=== PATIENT | male | born 1970 | race Caucasian/White ===

== ENCOUNTER 2016-12-09 08:44 | Observation (INO) | payer OTHER ==
[2016-12-09 09:41] LABS: Basophils # (A) 0.1 k/uL (0-0.2); Basophils % (A) 1 %; CHCM 34.4; Eosinophils # (A) 0.1 k/uL (0-0.7); Eosinophils % (A) 1 %; HCT 49.2 % (39.0-53.0); HDW 2.22; HGB 16.1 gm/dL (13.0-17.5); Luc # (Auto) 0.14; Luc % (Auto) 1; Lymphocytes # (A) 1.5 k/uL (1.0-4.8); Lymphocytes % (A) 13 %; MCH 29.7 pg (25.0-35.0); MCHC 32.8 g/dL (31.0-37.0); MCV 90.6 fL (80.0-100.0); Monocytes # (A) 0.6 k/uL (0-1.0); Monocytes % (A) 5 %; Neutrophils # (A) 9.3 k/uL (1.3-7.7); Neutrophils % (A) 79 %; RBC 5.43 m/uL (4.30-5.90); RDW 13.9 % (11.5-15.5); WBC 11.7 k/uL (3.8-10.6); WBC (Perox) 11.38
[2016-12-09 09:46] LABS: INR 1.1 (<1.2); Partial Thromboplastin Time 24.4 sec (22.0-30.0); Prothrombin Time 10.7 sec (9.0-12.0)
[2016-12-09 09:47] LABS: ALT 63 U/L (21-72); AST 28 U/L (17-59); Alkaline Phosphatase 79 U/L (38-126); Anion Gap 10 mmol/L; Blood Urea Nitrogen 16 mg/dL (9-20); Calcium 9.7 mg/dL (8.4-10.2); Carbon Dioxide 23 mmol/L (22-30); Chloride 109 mmol/L (98-107); Glucose 91 mg/dL (74-99); Magnesium 1.9 mg/dL (1.6-2.3); Non-African American GFR(MDRD) >60 (>60 ml/min/1.73 sqM); Potassium 4.4 mmol/L (3.5-5.1); Sodium 142 mmol/L (137-145); Total Bilirubin 0.5 mg/dL (0.2-1.3); Total Protein 7.2 g/dL (6.3-8.2)
--- NOTE | 2016-12-09 09:47 | ED ---
General Adult HPI - General Chief complaint: Chest Pain Stated complaint: arm pain and numbness,anxiety Time Seen by Provider: 12/09/16 09:00 Source: patient, RN notes reviewed Mode of arrival: ambulatory Limitations: no limitations - History of Present Illness Initial comments: This is a 46-year-old male presents emergency Department complaining of chest pain intermittently over the last 2 weeks. Patient states the pain radiates to his back and down his left arm. Patient states is also short of breath when he gets the pain. Patient states today the pain lasted about an hour and subsided as he was arriving to the hospital. Patient currently denies any chest pain. Patient states he also has a family history is positive for chest pain and he is a smoker. Patient states lately he is also under quite a bit of stress. Patient denies any recent fever chills or cough. Patient denies headache patient denies numbness weakness. Patient denies abdominal pain patient denies nausea vomiting or diarrhea. Patient denies any lightheadedness dizziness or near syncopal episode. - Related Data Home Medications Medication Instructions Recorded Confirmed Calcium Carbonate [Tums] 1,000 mg PO TID PRN 12/09/16 12/09/16 Ibuprofen [Advil] 200 mg PO Q6HR PRN 12/09/16 12/09/16 Allergies Allergy/AdvReac Type Severity Reaction Status Date / Time No Known Allergies Allergy Unverified 12/09/16 09:05 Review of Systems ROS Statement: Those systems with pertinent positive or pertinent negative responses have been documented in the HPI. ROS Other: All systems not noted in ROS Statement are negative. Past Medical History Past Medical History: No Reported History History of Any Multi-Drug Resistant Organisms: None Reported Past Surgical History: No Surgical Hx Reported Past Psychological History: No Psychological Hx Reported Smoking Status: Current every day smoker Past Alcohol Use History: None Reported Past Drug Use History: None Reported General Exam - General Exam Comments Initial Comments: GENERAL: Patient is well-developed and well-nourished. Patient is nontoxic and well- hydrated and is in mild distress. ENT: Neck is soft and supple. No significant lymphadenopathy is noted. Oropharynx is clear. Moist mucous membranes. Neck has full range of motion without eliciting any pain. EYES: The sclera were anicteric and conjunctiva were pink and moist. Extraocular movements were intact and pupils were equal round and reactive to light. Eyelids were unremarkable. PULMONARY: Unlabored respirations. Good breath sounds bilaterally. No audible rales rhonchi or wheezing was noted. CARDIOVASCULAR: There is a regular rate and rhythm without any murmurs gallops or rubs. ABDOMEN: Soft and nontender with normal bowel sounds. No palpable organomegaly was noted. There is no palpable pulsatile mass. SKIN: Skin is clear with no lesions or rashes and otherwise unremarkable. NEUROLOGIC: Patient is alert and oriented x3. Cranial nerves II through XII are grossly intact. Motor and sensory are also intact. Normal speech, volume and content. Symmetrical smile. MUSCULOSKELETAL: Normal extremities with adequate strength and full range of motion. No lower extremity swelling or edema. No calf tenderness. LYMPHATICS: No significant lymphadenopathy is noted PSYCHIATRIC: Normal psychiatric evaluation. Normal interpersonal interactions appears functionally intact in deals appropriately with others. No signs of depression. No signs of anxiety. Limitations: no limitations Course Vital Signs 12/09/16 12/09/16 08:55 10:59 Temperature 98.9 F Pulse Rate 102 H 92 Respiratory 18 21 Rate Blood Pressure 125/77 125/85 O2 Sat by Pulse 94 L 95 Oximetry Medical Decision Making - Medical Decision Making EKG shows normal sinus rhythm at 80 bpm VA interval is on a 60 QRS is 86 QT interval is 358 QTC is 433. Patient's EKG shows no ST segment elevation or depression or T-wave abdomen is noted. Chest x-ray shows no acute abnormality. I started the patient on heparin and aspirin and Nitropaste. I continue those on the floor. I Dr. Hunter he agreed to admit the patient I admitted the patient I wrote admitting orders - Lab Data Result diagrams: 12/09/16 09:00 12/09/16 09:00 Lab Results 12/09/16 12/09/16 12/09/16 Range/Units 09:00 09:00 09:00 WBC 11.7 H (3.8-10.6) k/uL RBC 5.43 (4.30-5.90) m/uL Hgb 16.1 (13.0-17.5) gm/dL Hct 49.2 (39.0-53.0) % MCV 90.6 (80.0-100.0) fL MCH 29.7 (25.0-35.0) pg MCHC 32.8 (31.0-37.0) g/dL RDW 13.9 (11.5-15.5) % Plt Count 282 (150-450) k/uL Neutrophils % 79 % Lymphocytes % 13 % Monocytes % 5 % Eosinophils % 1 % Basophils % 1 % Neutrophils # 9.3 H (1.3-7.7) k/uL Lymphocytes # 1.5 (1.0-4.8) k/uL Monocytes # 0.6 (0-1.0) k/uL Eosinophils # 0.1 (0-0.7) k/uL Basophils # 0.1 (0-0.2) k/uL PT (9.0-12.0) sec INR (<1.2) APTT (22.0-30.0) sec Sodium 142 (137-145) mmol/L Potassium 4.4 (3.5-5.1) mmol/L Chloride 109 H (98-107) mmol/L Carbon Dioxide 23 (22-30) mmol/L Anion Gap 10 mmol/L BUN 16 (9-20) mg/dL Creatinine 1.03 (0.66-1.25) mg/dL Est GFR (MDRD) Af Amer >60 (>60 ml/min/1.73 sqM) Est GFR (MDRD) Non-Af >60 (>60 ml/min/1.73 sqM) Glucose 91 (74-99) mg/dL Calcium 9.7 (8.4-10.2) mg/dL Magnesium 1.9 (1.6-2.3) mg/dL Total Bilirubin 0.5 (0.2-1.3) mg/dL AST 28 (17-59) U/L ALT 63 (21-72) U/L Alkaline Phosphatase 79 (38-126) U/L Total Creatine Kinase 127 (55-170) U/L CK-MB (CK-2) 0.7 (0.0-2.4) ng/mL CK-MB (CK-2) Rel Index 0.6 Troponin I <0.012 (0.000-0.034) ng/mL Total Protein 7.2 (6.3-8.2) g/dL Albumin 4.3 (3.5-5.0) g/dL 12/09/16 Range/Units 09:00 WBC (3.8-10.6) k/uL RBC (4.30-5.90) m/uL Hgb (13.0-17.5) gm/dL Hct (39.0-53.0) % MCV (80.0-100.0) fL MCH (25.0-35.0) pg MCHC (31.0-37.0) g/dL RDW (11.5-15.5) % Plt Count (150-450) k/uL Neutrophils % % Lymphocytes % % Monocytes % % Eosinophils % % Basophils % % Neutrophils # (1.3-7.7) k/uL Lymphocytes # (1.0-4.8) k/uL Monocytes # (0-1.0) k/uL Eosinophils # (0-0.7) k/uL Basophils # (0-0.2) k/uL PT 10.7 (9.0-12.0) sec INR 1.1 (<1.2) APTT 24.4 (22.0-30.0) sec Sodium (137-145) mmol/L Potassium (3.5-5.1) mmol/L Chloride (98-107) mmol/L Carbon Dioxide (22-30) mmol/L Anion Gap mmol/L BUN (9-20) mg/dL Creatinine (0.66-1.25) mg/dL Est GFR (MDRD) Af Amer (>60 ml/min/1.73 sqM) Est GFR (MDRD) Non-Af (>60 ml/min/1.73 sqM) Glucose (74-99) mg/dL Calcium (8.4-10.2) mg/dL Magnesium (1.6-2.3) mg/dL Total Bilirubin (0.2-1.3) mg/dL AST (17-59) U/L ALT (21-72) U/L Alkaline Phosphatase (38-126) U/L Total Creatine Kinase (55-170) U/L CK-MB (CK-2) (0.0-2.4) ng/mL CK-MB (CK-2) Rel Index Troponin I (0.000-0.034) ng/mL Total Protein (6.3-8.2) g/dL Albumin (3.5-5.0) g/dL Critical Care Time Critical Care Time: Yes Total Critical Care Time: 35 Disposition Clinical Impression: Unstable angina pectoris Disposition: ADMITTED IP TO THIS HOSP Referrals: Yelitza Graham MD [Primary Care Provider] - 1-2 days Time of Disposition: 11:18
--- NOTE | 2016-12-09 09:50 | XR ---
EXAMINATION TYPE: XR chest 2V DATE OF EXAM: 12/09/2016 COMPARISON: NONE HISTORY: Chest pain TECHNIQUE: Frontal and lateral views of the chest are obtained. FINDINGS: Question some subsegmental atelectatic change possibly right middle lobe. No pneumothorax or pleural effusion. Cardiomediastinal silhouette, pulmonary vascularity and yimi are normal. There a re overlying cardiac leads. IMPRESSION: Question subsegmental atelectasis, correlate to exclude pneumonia, follow-up recommended .
[2016-12-09] MEDS: NITROGLYCERIN OINT 1 INCH/GM PACKET TOPICAL STA ×2 (09:53→09:59)
[2016-12-09] MEDS: ASPIRIN 81 MG CHEW PO STA ×2 (09:54→09:58)
[2016-12-09 09:57] LABS: Creatine Kinase 127 U/L (55-170)
[2016-12-09 10:08] LABS: Creatine Kinase MB 0.7 ng/mL (0.0-2.4); Troponin I <0.012 ng/mL (0.000-0.034)
[2016-12-09] MEDS ORDERED: ASPIRIN 81 MG CHEW PO STA (10:39)
[2016-12-09] MEDS ORDERED: NITROGLYCERIN OINT 1 INCH/GM PACKET TOPICAL STA (10:39)
[2016-12-09] MEDS ORDERED: HEPARIN SODIUM,PORCINE 5,000 UNIT/ML 1 ML VIAL IV ONE (11:16)
[2016-12-09] MEDS ORDERED: NITROGLYCERIN SL TABS 0.4 MG TAB SUBLINGUAL PRN (11:18)
[2016-12-09] MEDS: HEPARIN SODIUM,PORCINE/D5W PMX 25,000 UNIT in DEXTROSE/WATER 1 500ML.BAG IV SCH (11:40)
[2016-12-09 16:01] LABS: Creatine Kinase 119 U/L (55-170)
[2016-12-09 16:14] LABS: Creatine Kinase MB 0.5 ng/mL (0.0-2.4); Troponin I <0.012 ng/mL (0.000-0.034)
[2016-12-09] MEDS: NITROGLYCERIN OINT 1 INCH/GM PACKET TOPICAL SCH (17:56)
[2016-12-09 21:58] LABS: Creatine Kinase 137 U/L (55-170)
[2016-12-09 22:09] LABS: Creatine Kinase MB 0.7 ng/mL (0.0-2.4); Troponin I <0.012 ng/mL (0.000-0.034)
[2016-12-09] MEDS: NICOTINE 21MG/24HR PATCH TRANSDERM SCH (22:28)
[2016-12-09 23:17] VITALS: RESP 18
[2016-12-10] MEDS: NITROGLYCERIN OINT 1 INCH/GM PACKET TOPICAL SCH ×2 (00:22→05:00)
[2016-12-10 05:09] LABS: Cholesterol 155 mg/dL (<200); HDL Cholesterol 38 mg/dL (40-60)
[2016-12-10 07:34] VITALS: BP 116/75; PULSE 77; TEMP 97.7
[2016-12-10] MEDS: HEPARIN SODIUM,PORCINE/D5W PMX 25,000 UNIT in DEXTROSE/WATER 1 500ML.BAG IV SCH (07:54)
[2016-12-10] MEDS: NICOTINE 21MG/24HR PATCH TRANSDERM SCH (07:57)
[2016-12-10] MEDS ORDERED: ASPIRIN 325 MG TAB PO SCH (09:00)
--- NOTE | 2016-12-10 10:31 | ECHOF ---
Referral Reason:chest pain MEASUREMENTS -------- HEIGHT: 190.5 cm WEIGHT: 128.8 kg BP: 100/58 RVIDd: 3.7 cm (< 3.3) IVSd: 1.4 cm (0.6 - 1.1) LVIDd: 4.2 cm (3.9 - 5.3) LVPWd: 1.4 cm (0.6 - 1.1) IVSs: 1.7 cm LVIDs: 3.0 cm LVPWs: 1.9 cm LA Diam: 3.7 cm (2.7 - 3.8) LAESV Index (A-L): 22.41 ml/m Ao Diam: 3.7 cm (2.0 - 3.7) AV Cusp: 2.4 cm (1.5 - 2.6) MV EXCURSION: 15.857 mm (> 18.000) MV EF SLOPE: 63 mm/s (70 - 150) EPSS: 0.9 cm MV E Nas: 0.53 m/s MV DecT: 310 ms MV A Nas: 0.84 m/s MV E/A Ratio: 0.63 RAP: 5.00 mmHg RVSP: 22.70 mmHg FINDINGS -------- Sinus rhythm. This was a technically difficult study with suboptimal apical views. The left ventricular size is normal. There is moderate concentric left ventricular hypertrophy. Overall left ventricular systolic function is normal with, an EF between 55 - 60 %. The right ventricle is mildly enlarged. Normal LA size by volume 22+/-6 ml/m2. The right atrium is normal in size. 1.5mg of Definity was utilized for enhancement of images The aortic valve is trileaflet and appears structurally normal. There is trace mitral regurgitation. Mild tricuspid regurgitation present. Right ventricular systolic pressure is normal at < 35 mmHg. Trace/mild (physiologic) pulmonic regurgitation. The aortic root is dilated measuring 3.7cm. There is no pericardial effusion. CONCLUSIONS -------- 1. Sinus rhythm. 2. The aortic valve is trileaflet and appears structurally normal. 3. There is trace mitral regurgitation. 4. Mild tricuspid regurgitation present. 5. Right ventricular systolic pressure is normal at < 35 mmHg. 6. Trace/mild (physiologic) pulmonic regurgitation. 7. The aortic root is dilated measuring 3.7cm. 8. There is no pericardial effusion. 9. This was a technically difficult study with suboptimal apical views. 10. The left ventricular size is normal. 11. There is moderate concentric left ventricular hypertrophy. 12. Overall left ventricular systolic function is normal with, an EF between 55 - 60 %. 13. The right ventricle is mildly enlarged. 14. Normal LA size by volume 22+/-6 ml/m2. 15. The right atrium is normal in size. 16. 1.5mg of Definity was utilized for enhancement of images SECURITIES SALES ASSOCIATE: Taryn Adams RDCS
--- NOTE | 2016-12-10 11:30 | HP ---
DATE OF SERVICE: 12/09/2016 CHIEF COMPLAINTS: Chest pains. HISTORY OF PRESENT ILLNESS: This 46-year-old gentleman with past medical history of no significant medical cardiopulmonary disease being followed by Dr. 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 The patient was having pain in the upper part of the abdomen lower part of the chest for the last several days, at least two weeks and last night the pain was going into the left arm and patient was concerned. The patient came to [facility] ER and admitted for further evaluation and treatment. The pain was in character and also associated with some shortness of breath. No palpitations. No headache, loss of consciousness or seizures. PAST MEDICAL HISTORY: No significant cardiopulmonary illness, otherwise nicotine dependence. Medications prior to admission include: 1. Advil 200 mg q.6. p.r.n. 2. TUMS 1000 mg t.i.d. p.r.n. ALLERGIES: None. FAMILY HISTORY: History of chronic obstructive pulmonary disease. SOCIAL HISTORY: History of smoking. History of occasional alcohol intake. REVIEW OF SYSTEMS: ENT: No diminished hearing or vision. CARDIOVASCULAR: As mentioned earlier. RESPIRATORY: As mentioned earlier. GI: No nausea. : No dysuria. NERVOUS SYSTEM: No numbness or weakness. ALLERGY/IMMUNOLOGY: No asthma or hayfever. MUSCULOSKELETAL: As mentioned earlier. HEMATOLOGY/ONCOLOGY: No history of anemia. ENDOCRINE: No history of diabetes or hypothyroidism. CONSTITUTIONAL: As mentioned earlier. DERMATOLOGY: Negative. RHEUMATOLOGY: Negative. PSYCHIATRY: As mentioned earlier. PHYSICAL EXAMINATION: The patient is alert and oriented x3. Pulse is 72, blood pressure 101/62, respirations 18, temperature 97.8, pulse ox 90% on room air. HEENT: Conjunctivae normal. NECK: No jugular venous distention. CARDIOVASCULAR: S1, S2. RESPIRATORY: Breath sounds diminished at the bases. No rhonchi, no crackles. ABDOMEN: Soft, nontender, no mass palpable. No hepatosplenomegaly. LEGS: No edema, no swelling. NERVOUS SYSTEM: Higher function as mentioned. Moves all four limbs. No focal motor sensory deficits. LYMPHATICS: No lymphadenopathy in the neck, axillae or groin. SKIN: No rash, ulcer or bleeding. LABS: WBC 11.7, chloride 109. ASSESSMENT: 1. Chest pain for evaluation, possible unstable angina. 2. Social stressors. 3. History of nicotine dependence. 4. Increased WBC. RECOMMENDATIONS AND DISCUSSION: In this 40-year-old gentleman who presented with multiple complex medical issues, we well monitor the patient closely. Continue the current medications. Continue symptomatic treatment. Unstable angina protocol. Cardiology consultation. NPO past midnight. Possible stress test in the morning. Xanax p.r.n. Guarded prognosis. Further recommendations to follow. Discussed with the patient who understands and agrees. MICHELLE
--- NOTE | 2016-12-10 12:14 | EST ---
DATE OF SERVICE: 12/10/2016 TYPE OF REPORT: Regular stress test, Dhruv. INDICATION: Chest pain. BASELINE HEART RATE: 71 BASELINE BLOOD PRESSURE: 112/74 MAXIMUM HEART RATE: 152 MAXIMUM BLOOD PRESSURE: 161/67 85% MPHR: 148 100% MPHR: 174 METS: 6.1 MAX STAGE REACHED: III TOTAL EXERCISE TIME: 6:45 Baseline EKG revealed normal sinus rhythm without significant ST-T changes. Patient walked on standard Dhruv protocol for 6 minutes 45 seconds, achieved a maximal heart rate of 152 beats per minute, which is 86% of predicted maximal. He developed fatigue and shortness of breath and right hip and back discomfort and therefore stress test was stopped. He did not have any angina. There was no significant arrhythmia and there was no ST segment changes to indicate ischemia. This is a negative stress test with fair exercise capacity. MICHELLE
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
--- NOTE | 2016-12-24 14:05 | P.DS ---
Providers Date of admission: 12/09/16 11:20 Attending physician: Hill Hunter Consults: 12/09/16 11:18 Consult Physician Urgent Consulting Provider: [facility] Consult Reason/Comments: Unstable angina Do you want consulting provider notified?: Yes Primary care physician: Yelitza Graham [facility] Course: This 46-year-old gentleman was admitted chest pain. Stress Test was negative. Cardio saw the patient. Improved significantly. Patient be discharged in a stable condition with guarded prognosis with further plans to follow up with cardiology and primary physician outpatient setting. On exam vitals stable. Cardio S1 and S2 normal. Abdomen soft nontender. Respirator system clear to oscillation. Final diagnosis 1. Chest pain possibly muscle skeletal. 2. Negative stress test 3. Social stressors 4. History and nicotine dependence. Plan - Discharge Summary New Discharge Prescriptions: No Action Ibuprofen [Advil] 200 mg PO Q6HR PRN PRN Reason: Pain Calcium Carbonate [Tums] 1,000 mg PO TID PRN PRN Reason: Indigestion Discharge Medication List Calcium Carbonate [Tums] 1,000 mg PO TID PRN 12/09/16 [History] Ibuprofen [Advil] 200 mg PO Q6HR PRN 12/09/16 [History] Follow up Appointment(s)/Referral(s): Yelitza Graham MD [Primary Care Provider] - 3 Days Patient Instructions/Handouts: Chest Pain (DC) Activity/Diet/Wound Care/Special Instructions: Diet: Cardiac, low cholesterol Activity: Limited until follow up Discharge Disposition: HOME SELF-CARE
== END 2016-12-10 11:20 | disposition home or self-care (01) ==
LOC: EC 08:44 → 3OBS 11:20
PROVIDERS: ADMIT Hospitalist; ATTEND Hospitalist
DX: R07.89 Other chest pain (principal); F41.9 Anxiety disorder, unspecified; R20.0 Anesthesia of skin; M79.603 Pain in arm, unspecified; F17.200 Nicotine dependence, unspecified, uncomplicated; K21.9 Gastro-esophageal reflux disease without esophagitis; M54.9 Dorsalgia, unspecified; G89.29 Other chronic pain; E66.9 Obesity, unspecified; Z68.35 Body mass index [BMI] 35.0-35.9, adult; Z82.49 Family history of ischemic heart disease and other diseases of the circulatory system; Z82.5 Family history of asthma and other chronic lower respiratory diseases
CPT/HCPCS: 96365; 96366 ×2; 96376; 99291; 36415; 93005; 93017; 93306; 85379; 80061; 80053; 82550; 82553; 83735; 84484; 85025; 85610; 85730 ×2; 71020; G0378 ×2; S4990 ×2; J1644 ×3; Q9957